=== PATIENT | female | born 1970 | race Caucasian/White ===

== ENCOUNTER → 2021-07-12 | Outpatient (CLI) | payer OTHER ==
--- NOTE | 2021-07-12 12:02 | RAD ---
EXAMINATION: XR CHEST 2V. HISTORY: 51 years Female Reason: SHORT OF BREATH HX OF BRONCHITIS. COMPARISON: None. Findings: The lungs are clear. The heart size is normal. There is no effusion or pneumothorax. The mediastinum and adan appear unremarkable. Impression: Unremarkable study. Electronically signed by: Eric Woody MD (07/12/2021 11:59 AM) [id number]
== END ==
LOC: PMG 11:34
PROVIDERS: ATTEND Nurse Practitioner Family
DX: J22 Unspecified acute lower respiratory infection (principal)
CPT/HCPCS: 71046